=== PATIENT | female | born 1945 | race Caucasian/White ===

== ENCOUNTER → 2017-04-18 | Day surgery (SDC) | payer MEDICARE ==
--- NOTE | 2017-04-18 16:46 | RADIOLOGY REPORT (SQ) ---
CORRECTED REPORT EXAM DESCRIPTION: INJECT SHOULDER ARTHROG; FLUORO/NEEDLE PLACEMENT COMPLETED DATE/TIME: 04/18/2017 2:25 pm; 04/18/2017 2:24 pm REASON FOR STUDY: COMPLETE ROTATOR CUFF TEAR OR RUPTURE OF RT SHOULDER NOT SPEC TRAUMATIC M75.121 COMPLETE ROTATR-CUFF TEAR/RUPTR OF R SHOULDER, NOT T COMPARISON: None. FLUOROSCOPY TIME: 10 seconds 3 digital images saved to PACS. LIMITATIONS: None. PROCEDURE: Procedure, risks, benefits and alternative explained to patient who then gave written consent. The posterior right shoulder was marked and a time- out was called for correct marking verification. Posterior entry site marked using fluoroscopic guidance. Shoulder prepped and draped using sterile technique. Local anesthesia achieved using 6 mL of 1% lidocaine injection. 22 gauge spinal needle introduced into the joint space under direct fluoroscopic visualization. Non-ionic contrast instilled to confirm intra-articular position. Additional dilute non-ionic contrast instilled. Needle removed and entry site covered with sterile bandage. No immediate complications noted. TECHNIQUE: Digital images acquired during fluoroscopy and stored on PACS. Patient immediately taken to the CT suite for additional imaging. INJECTION LOCATION: Right posterior glenohumeral joint CONTRAST TYPE AND AMOUNT: 1 mL of Isovue-300 followed by 10 mL of dilute Isovue/ saline mixture for CT arthrogram IMPRESSION: SUCCESSFUL NEEDLE PLACEMENT AND INJECTION FOR RIGHT SHOULDER CT ARTHROGRAM USING POSTERIOR APPROACH. COMMENT: Quality ID 145: Final reports for procedures using fluoroscopy that document radiation exposure indices, or exposure time and number of fluorographic images (if radiation exposure indices are not available) TECHNICAL DOCUMENTATION: JOB ID: [id number] [employer]- All Rights Reserved <Electronically signed by MELINDA WALDROP MD in [place]> 04/18/17 0426 [facility]
--- NOTE | 2017-04-18 16:46 | RADIOLOGY REPORT (SQ) ---
CORRECTED REPORT EXAM DESCRIPTION: INJECT SHOULDER ARTHROG; FLUORO/NEEDLE PLACEMENT COMPLETED DATE/TIME: 04/18/2017 2:25 pm; 04/18/2017 2:24 pm REASON FOR STUDY: COMPLETE ROTATOR CUFF TEAR OR RUPTURE OF RT SHOULDER NOT SPEC TRAUMATIC M75.121 COMPLETE ROTATR-CUFF TEAR/RUPTR OF R SHOULDER, NOT T COMPARISON: None. FLUOROSCOPY TIME: 10 seconds 3 digital images saved to PACS. LIMITATIONS: None. PROCEDURE: Procedure, risks, benefits and alternative explained to patient who then gave written consent. The posterior right shoulder was marked and a time- out was called for correct marking verification. Posterior entry site marked using fluoroscopic guidance. Shoulder prepped and draped using sterile technique. Local anesthesia achieved using 6 mL of 1% lidocaine injection. 22 gauge spinal needle introduced into the joint space under direct fluoroscopic visualization. Non-ionic contrast instilled to confirm intra-articular position. Additional dilute non-ionic contrast instilled. Needle removed and entry site covered with sterile bandage. No immediate complications noted. TECHNIQUE: Digital images acquired during fluoroscopy and stored on PACS. Patient immediately taken to the CT suite for additional imaging. INJECTION LOCATION: Right posterior glenohumeral joint CONTRAST TYPE AND AMOUNT: 1 mL of Isovue-300 followed by 10 mL of dilute Isovue/ saline mixture for CT arthrogram IMPRESSION: SUCCESSFUL NEEDLE PLACEMENT AND INJECTION FOR RIGHT SHOULDER CT ARTHROGRAM USING POSTERIOR APPROACH. COMMENT: Quality ID 145: Final reports for procedures using fluoroscopy that document radiation exposure indices, or exposure time and number of fluorographic images (if radiation exposure indices are not available) TECHNICAL DOCUMENTATION: JOB ID: [id number] 2007 [employer]- All Rights Reserved <Electronically signed by MELINDA WALDROP MD in [place]> 04/18/17 6656 [facility]
--- NOTE | 2017-04-18 17:03 | RADIOLOGY REPORT (SQ) ---
EXAM DESCRIPTION: CT RT UPPER EXTREMITY WITH COMPLETED DATE/TIME: 04/18/2017 2:24 pm REASON FOR STUDY: COMPLETE ROTATOR CUFF TEAR OR RUPTURE OF RT SHOULDER NOT SPEC TRAUMATIC M75.121 COMPLETE ROTATR-CUFF TEAR/RUPTR OF R SHOULDER, NOT T COMPARISON: None. TECHNIQUE: [facility] with reformatted oblique coronal and ob lique sagittal imaging windowed for bone and soft tissues, post arthrogram. All CT scanners at this facility use dose modulation, iterative reconstruction, and/or weight based d osing when appropriate to reduce radiation dose to as low as reasonably achievable (ALARA). [facility]: Dose Right [facility]: CareDose [facility]: Dose Right [facility]: Teradose 4D [facility]: [employer] RADIATION DOSE: Up-to-date CT equipment and radiation dose reduction techniques were employed. CTDIv ol: 32.3 mGy. DLP: 787 mGy-cm. mGy. LIMITATIONS: None. FINDINGS: SOFT TISSUES: No masses or adenopathy. Right lung apex clear. BONY ARCHITECTURE: No fracture. No lytic or blastic lesions. Bones are osteopenic. GLENOHUMERAL JOINT: No dislocation. Superior subluxation of the right humeral head with respect to t he bony glenoid related to a full-thickness rotator cuff tear ACROMION AND AC JOINT: Mild bony spurring at the acromioclavicular joint with mild narrowing of the s ub acromial recess. ROTATOR CUFF: Full-thickness tear of the supraspinatus and infraspinatus tendons, with spillage of in tra-articular contrast into the subacromial/subdeltoid bursa. There is also contrast tracking into t he subcoracoid recess. GLENOID, LABRUM AND BICEPS: Intra-articular long head biceps tendon intact. No definite labral tear. Mild diffuse chondromalacia over the articular surface of the glenoid OTHER: No other significant finding. IMPRESSION: Full-thickness supra and infraspinatus tendon tears TECHNICAL DOCUMENTATION: JOB ID: [id number] Quality ID # [id number]: Final reports with documentation of one or more dose reduction techniques (e.g., Au tomated exposure control, adjustment of the mA and/or kV according to patient size, use of iterative reconstruction technique) 2010 [employer]- All Rights Reserved
== END ==
LOC: RAD 13:22
PROVIDERS: ATTEND Nuclear Medicine
PROC: BP08ZZZ Plain Radiography of Right Shoulder (ICD-10-PCS; principal; 2017-04-18)
DX: M75.121 Complete rotator cuff tear or rupture of right shoulder, not specified as traumatic (principal)
CPT/HCPCS: 23350; 73040; 77002